=== PATIENT | male | born 1995 | race Caucasian/White ===

== ENCOUNTER 2019-09-12 13:39 | Emergency (ER) | payer OTHER ==
[~2019-09-12] VITALS: Ht 165.1 cm; Wt 64.0 kg
[2019-09-12 13:57] VITALS: BP 123/74
[2019-09-12] MEDS ORDERED: FAMOTIDINE (20 MG) 20 MG TABLET ONE (14:14)
[2019-09-12] MEDS ORDERED: predniSONE 20 MG TABLET ONE (14:14)
[2019-09-12] MEDS ORDERED: diphenhydrAMINE HCL 25 MG CAPSULE ONE (14:14)
[2019-09-12] MEDS ORDERED: predniSONE 20 MG TABLET PO ONE (14:30)
[2019-09-12] MEDS ORDERED: diphenhydrAMINE HCL 25 MG CAPSULE PO ONE (14:30)
[2019-09-12] MEDS ORDERED: FAMOTIDINE (20 MG) 20 MG TABLET PO ONE (14:30)
== END 2019-09-12 14:40 | disposition home or self-care (01) ==
LOC: ER 13:39
DX: L50.9 Urticaria, unspecified (principal); Z91.018 Allergy to other foods
CPT/HCPCS: 99284; J7512; Q0163

== ENCOUNTER 2024-12-04 17:50 | Emergency (ER) | payer OTHER ==
[~2024-12-04] VITALS: Ht 177.8 cm; Wt 56.7 kg
[2024-12-04 17:57] VITALS: TEMP 98.2
[2024-12-04 18:24] LABS: APPEARANCE,URINE Clear (CLEAR); BILIRUBIN,URINE Negative (NEGATIVE); BLOOD, URINE Trace-intact Ery/uL (NEGATIVE); COLOR,URINE YELLOW (YELLOW); KETONES,URINE Trace mg/dL (NEGATIVE); LEUKOCYTE ESTERASE ,URINE Negative (NEGATIVE); NITRITE, URINE Negative (NEGATIVE); PH,URINE 6.5 (5.0-8.0); PROTEIN,URINE Negative (NEGATIVE); UGLUCOSE Negative (NEGATIVE); UROBILINOGEN,URINE 0.2 EU/dL (0.2)
[2024-12-04 18:29] LABS: ADD URINE CULTURE NO; BACTERIA,URINE None seen /HPF (None Seen); SQUAMOUS EPITHELIAL CELL,UR None Seen /HPF (None Seen); WBC,URINE 0-2 /HPF (0-3)
[2024-12-04 20:56] VITALS: BP 125/75; O2SAT 98
== END 2024-12-04 20:48 | disposition home or self-care (01) ==
LOC: ER 17:52
DX: I86.1 Scrotal varices (principal); N50.812 Left testicular pain
CPT/HCPCS: 76870-TC; 81001; 87086-TC